=== PATIENT | female | born 1980 | race American Indian/Alaskan Native ===

== ENCOUNTER 2021-01-29 12:15 | Emergency (ER) | payer MEDICAID ==
[2021-01-29 12:54] VITALS: PULSE 87
--- NOTE | 2021-01-29 13:48 | EDM.PDOC ---
ED HPI GENERAL MEDICAL PROBLEM - General Chief Complaint: Abdominal Pain Stated Complaint: Arm pain Time Seen by Provider: 01/29/21 12:20 Source of Information: Reports: Patient History Limitations: Reports: No Limitations - History of Present Illness INITIAL COMMENTS - FREE TEXT/NARRATIVE: Patient presented to the ED because of bilateral arm pain. She had epigastric pain,N/V x1 and after that she developed this squeezing bilaterall arm pain. there is o fever or chills but has a dry cough for 2 days now which she attributes to allergy. Generalized Pain Score (Numeric/FACES): 4 - Related Data Allergies Allergy/AdvReac Type Severity Reaction Status Date / Time No Known Allergies Allergy Verified 01/29/21 12:40 Home Meds: Home Meds Sulfamethoxazole/Trimethoprim [Bactrim Ds Tablet] 1 each PO BID #10 tablet 01/29/21 [Rx] Social & Family History - Tobacco Use Tobacco Use Status *Q: Current Every Day Tobacco User Years of Tobacco use: 10 Packs/Tins Daily: 0 - Caffeine Use Caffeine Use: Reports: Coffee, Soda, Tea - Recreational Drug Use Recreational Drug Use: No ED ROS GENERAL - Review of Systems Review Of Systems: See Below Constitutional: Reports: No Symptoms HEENT: Reports: No Symptoms Respiratory: Reports: No Symptoms Cardiovascular: Reports: No Symptoms Endocrine: Reports: No Symptoms GI/Abdominal: Reports: No Symptoms : Reports: No Symptoms Musculoskeletal: Reports: Arm Pain Skin: Reports: No Symptoms Neurological: Reports: No Symptoms, Confusion, Dizziness Psychiatric: Reports: No Symptoms Hematologic/Lymphatic: Reports: No Symptoms Immunologic: Reports: No Symptoms ED EXAM, GENERAL - Physical Exam Exam: See Below Exam Limited By: No Limitations General Appearance: Alert, No Apparent Distress Eye Exam: Bilateral Eye: PERRL Ears: Normal External Exam, Normal Canal Nose: Normal Inspection, Normal Mucosa, No Blood Throat/Mouth: Normal Inspection, Normal Lips, Normal Teeth Head: Atraumatic, Normocephalic Neck: Normal Inspection, Supple, Non-Tender, Full Range of Motion Respiratory/Chest: No Respiratory Distress, Lungs Clear, Normal Breath Sounds, No Accessory Muscle Use, Chest Non-Tender GI/Abdominal: Normal Bowel Sounds, Soft, Non-Tender, No Organomegaly, No Distention, No Abnormal Bruit Back Exam: Normal Inspection, Full Range of Motion Extremities: Normal Inspection, Normal Range of Motion, Non-Tender Neurological: Alert, Oriented, CN II-XII Intact, Normal Cognition, Normal Gait Psychiatric: Normal Affect Course - Vital Signs Text/Narrative:: lab result was reviewed and discussed with patient Last Recorded V/S: Last Vital Signs Temp 36.9 C 01/29/21 14:05 Pulse 87 01/29/21 14:05 Resp 18 01/29/21 14:05 BP 155/100 H 01/29/21 14:05 Pulse Ox 96 01/29/21 14:05 - Orders/Labs/Meds Orders: Active Orders 24 hr Category Date Time Status CULTURE URINE [RM] Stat Lab 01/29/21 13:23 Received Labs: Laboratory Tests 01/29/21 01/29/21 01/29/21 Range/Units 13:00 13:00 13:23 WBC 6.6 (3.0-10.3) x10-3/uL RBC 4.56 (3.60-5.20) x10(6)uL Hgb 13.0 (11.4-15.5) g/dL Hct 39.9 (34.2-48.2) % MCV 87.5 (76.7-100.5) fL MCH 28.5 (23.9-33.9) pg MCHC 32.5 (31.9-34.8) g/dL RDW 15.0 (12.3-16.5) % Plt Count 259 (151-488) x10(3)uL MPV 8.6 (7.1-12.4) fL Neut % (Auto) 59.8 (30.8-76.2) % Lymph % (Auto) 29.4 (18.4-52.1) % Lane % (Auto) 7.7 (4.4-15.7) % Eos % (Auto) 2.7 (0.6-8.1) % Baso % (Auto) 0.4 (0.2-1.5) % Neut # (Auto) 3.9 (1.5-6.3) x10-3/uL Lymph # (Auto) 1.9 (1.0-4.4) x10-3/uL Lane # (Auto) 0.5 (0.3-1.0) x10-3/uL Eos # (Auto) 0.2 (0.0-0.8) x10-3/uL Baso # (Auto) 0.0 (0.0-0.1) x10-3/uL Sodium 144 (135-145) mmol/L Potassium 3.8 (3.5-5.3) mmol/L Chloride 105 (100-110) mmol/L Carbon Dioxide 29 (21-32) mmol/L BUN 7 (7-18) mg/dL Creatinine 0.8 (0.55-1.02) mg/dL Est Cr Clr Drug Dosing 106.57 mL/min Estimated GFR (MDRD) > 60 (>60) BUN/Creatinine Ratio 8.8 L (9-20) Glucose 96 (80-116) mg/dL Calcium 8.6 (8.6-10.2) mg/dL Total Bilirubin 0.5 (0.1-1.3) mg/dL AST 30 H (5-25) IU/L ALT 50 H (12-36) U/L Alkaline Phosphatase 104 (56-112) IU/L Creatine Kinase 84 (60-160) IU/L Total Protein 7.5 (6.0-8.0) g/dL Albumin 3.7 (3.5-5.2) g/dL Globulin 3.8 g/dL Albumin/Globulin Ratio 1.0 Urine Color Yellow (YELLOW) Urine Appearance Cloudy (CLEAR) Urine pH 6.5 (5.0-6.5) Ur Specific [place] 1.015 (1.010-1.025) Urine Protein Negative (NEGATIVE) mg/dL Urine Glucose (UA) Normal (NORMAL) mg/dL Urine Ketones Negative (NEGATIVE) mg/dL Urine Occult Blood Moderate H (NEGATIVE) Urine Nitrite Positive H (NEGATIVE) Urine Bilirubin Negative (NEGATIVE) Urine Urobilinogen Normal (NEGATIVE) mg/dL Ur Leukocyte Esterase Small H (NEGATIVE) Urine RBC 5-10 H (0-5) Urine WBC 20-30 H (0-5) Ur Squamous Epith Cells Moderate H (NS,R,O) Urine Bacteria Many H (NS) Departure - Departure Time of Disposition: 13:45 Disposition: Home, Self-Care 01 Condition: Good Clinical Impression: Viral syndrome, UTI (urinary tract infection) - Discharge Information Prescriptions: Sulfamethoxazole/Trimethoprim [Bactrim Ds Tablet] 1 each PO BID #10 tablet Instructions: Urinary Tract Infection, Adult, [id number], Viral Illness, Adult Forms: ED Department Discharge Additional Instructions: please read discharge instructions on uti and viral syndrome drink at least 2 liters of water daily bactrim ds twice daily for 5 days ibuprofen 800 mg with tylenol 1000 mg every 8 hours as needed for pain follow up as needed Sepsis Event Note (ED) - Evaluation Sepsis Screening Result: No Definite Risk - Focused Exam Vital Signs: Vital Signs Temp Pulse Resp BP Pulse Ox 01/29/21 14:05 36.9 C 87 18 155/100 H 96 01/29/21 12:15 36.2 C 87 18 156/97 H 98 - My Orders Last 24 Hours: My Active Orders 01/29/21 13:23 CULTURE URINE [RM] Stat - Assessment/Plan Last 24 Hours: My Active Orders 01/29/21 13:23 CULTURE URINE [RM] Stat
[2021-01-29 14:13] VITALS: BP 155/100
== END 2021-01-29 14:05 | disposition home or self-care (01) ==
LOC: FB.ED 12:15
DX: B34.9 Viral infection, unspecified (principal); N39.0 Urinary tract infection, site not specified; M79.601 Pain in right arm; M79.602 Pain in left arm; R10.13 Epigastric pain; Z72.0 Tobacco use
CPT/HCPCS: 36415; 80053; 81001; 82550; 85025; 87086; 87088; 87186; 99284

== ENCOUNTER 2024-01-23 21:21 | Emergency (ER) | payer MEDICAID ==
[2024-01-23] MEDS ORDERED: Albuterol 6.7 GM Inhaler INH ONE (21:22)
[2024-01-23 21:49] VITALS: BP 207/121; PULSE 95
[2024-01-23] MEDS: Dexamethasone 4 MG/ML SDV IM ONE (22:02)
== END 2024-01-23 22:54 | disposition home or self-care (01) ==
LOC: FB.ED 21:21
DX: J45.909 Unspecified asthma, uncomplicated (principal); Z79.899 Other long term (current) drug therapy
CPT/HCPCS: 96372; 99284; A9270; J1100

== ENCOUNTER 2025-06-06 13:43 | Emergency (ER) | payer MEDICAID ==
[2025-06-06] MEDS: Ondansetron 4 MG/2 ML SDV IVPUSH ONE (14:13)
[2025-06-06 14:28] LABS: BASOPHILS ABSOLUTE AUTO 0.1 x10-3/uL (0.0-0.1); BASOPHILS PERCENT AUTO 0.9 % (0.2-1.5); EOSINOPHILS ABSOLUTE AUTO 0.3 x10-3/uL (0.0-0.8); EOSINOPHILS PERCENT AUTO 3.4 % (0.6-8.1); LYMPHOCYTES ABSOLUTE AUTO 1.6 x10-3/uL (1.0-4.4); LYMPHOCYTES PERCENT AUTO 18.7 % (18.4-52.1); MEAN PLATELET VOLUME 7.7 fL (7.1-12.4); MONOCYTES ABSOLUTE AUTO 0.5 x10-3/uL (0.3-1.0); MONOCYTES PERCENT AUTO 5.4 % (4.4-15.7); NEUTROPHILS ABSOLUTE AUTO 6.1 x10-3/uL (1.5-6.3); NEUTROPHILS PERCENT AUTO 71.6 % (30.8-76.2); PLATELET COUNT,PLT 366 x10(3)uL (151-488); RED CELL DISTRIBUTION WIDTH 18.1 % (12.3-16.5); WHITE BLOOD CELL COUNT,WBC 8.5 x10-3/uL (3.0-10.3)
[2025-06-06 14:29] LABS: GLUCOSE,URINE NORMAL (NORMAL); OCCULT BLOOD,URINE LARGE (NEGATIVE)
[2025-06-06 14:35] LABS: BLOOD UREA NITROGEN,BUN 7 mg/dL (7-18); CARBON DIOXIDE,CO2 29 mmol/L (21-32); CHLORIDE,CL 105 mmol/L (100-110); CREATININE 0.7 mg/dL (0.55-1.02); EST CRCL DRUG DOSING (CG) 115.82 mL/min; ESTIMATED GFR 110 mL/min (>60); GLUCOSE RANDOM 111 mg/dL (80-116); POTASSIUM,K 3.7 mmol/L (3.5-5.3); SODIUM,NA 142 mmol/L (135-145)
[2025-06-06 14:40] LABS: A/G RATIO 1.0; ALANINE AMINOTRANSFERASE,ALT 28 U/L (12-36); ASPARTATE AMNIOTRANSFERASE,AST 14 IU/L (5-25); BILIRUBIN TOTAL 0.2 mg/dL (0.1-1.3); PROTEIN TOTAL,TP 7.5 g/dL (6.0-8.0)
[2025-06-06 14:47] LABS: RED BLOOD CELL COUNT 4.30 x10(6)uL (3.60-5.20)
[2025-06-06 14:47] LABS: APPEARANCE,URINE SLIGHTLY CLOUDY (CLEAR); SQUAMOUS EPITHELIAL CELLS,UR FEW (NS,R,O)
[2025-06-06] MEDS: Iopamidol 755 Mg/ML 100 ML Bottle IV SCH (14:55)
[2025-06-06 15:13] VITALS: PULSE 86
[2025-06-06] MEDS: Ketorolac 30 MG/ML SDV IVPUSH ONE (15:46)
[2025-06-06 16:49] VITALS: BP 156/86
== END 2025-06-06 16:49 | disposition home or self-care (01) ==
LOC: FB.ED 13:43
DX: N13.2 Hydronephrosis with renal and ureteral calculous obstruction (principal); E86.0 Dehydration; Z79.899 Other long term (current) drug therapy
CPT/HCPCS: 36415; 74177; 80053; 81001; 83605; 85025; 86140; 96361; 96374; 96375; 99284; A9270; J1885; J2270; J2405; J7030; Q9967